=== PATIENT | male | born 1955 | race Caucasian/White ===

== ENCOUNTER 2018-05-07 10:00 | Inpatient (IN) | payer BC ==
[~2018-05-07] VITALS: Ht 175.3 cm; Wt 90.4 kg
[2018-05-07] MEDS ORDERED: CHOL100046 PO (10:58)
[2018-05-07] MEDS ORDERED: IBUP-1985 PO (10:58)
[2018-05-07] MEDS ORDERED: CALC1TAB PO (10:58)
[2018-05-07] MEDS ORDERED: DOCU-28 PO (10:58)
[2018-05-18 14:47] LABS: EOSINOPHILS # (AUTO) 0.1 X10'3 (0-0.9); EOSINOPHILS % (AUTO) 1.4 % (0-6); LYMPHOCYTES # (AUTO) 1.5 X10'3 (1.1-4.8); LYMPHOCYTES % (AUTO) 31.1 % (21-51); MEAN CORPUSCULAR HEMOGLOBIN 32.2 PG (27.0-31.0); MEAN CORPUSCULAR HGB CONC 33.5 g/dL (33.0-36.5); MEAN CORPUSCULAR VOLUME 96.2 FL (78-98); MEAN PLATELET VOLUME 7.7 FL (7.4-10.4); MONOCYTES # (AUTO) 0.5 X10'3 (0-0.9); NEUTROPHILS # (AUTO) 2.7 X10'3 (1.8-7.7); NEUTROPHILS % (AUTO) 55.5 % (42-75); PRE OP HEMATOCRIT 45.9 % (42.0-52.0); PRE OP HEMOGLOBIN 15.4 g/dL (14.0-17.9); PRE OP PLATELET COUNT 163 X10'3 (140-440); RED BLOOD COUNT 4.77 X10'6 (4.70-6.10); RED CELL DISTRIBUTION WIDTH 13.5 % (11.5-14.5)
[2018-05-18 14:59] LABS: CLARITY,URINE CLEAR (Clear); COLOR,URINE YELLOW (Yellow); GLUCOSE, URINE NEGATIVE (Neg); KETONES,URINE NEGATIVE (Neg); LEUKOCYTE ESTERASE ,URINE NEGATIVE (Neg); NITRITES, URINE NEGATIVE (Neg); OCCULT BLOOD,URINE NEGATIVE (Neg); PROTEIN,URINE NEGATIVE (Neg); UROBILINOGEN,URINE 0.2 E.U/dL (0.2-1.0)
[2018-05-18 15:00] LABS: ALBUMIN/GLOBULIN RATIO 1.1 (1.1-1.5); ALKALINE PHOSPHATASE 74 IU/L (46-116); BLOOD UREA NITROGEN 19 MG/DL (7-18); BUN/CREATININE RATIO 18.4 (5.4-32.0); CALCIUM 9.6 MG/DL (8.5-10.1); CHLORIDE 101 MMOL/L (99-107); CREATININE 1.03 MG/DL (0.60-1.10); PRE OP ALT 36 U/L (30-65); PRE OP ANION GAP 4 (8-16); PRE OP AST 19 U/L (10-37); PRE OP BILIRUB, TOTAL 0.7 MG/DL (0.0-1.0); PRE OP GLUCOSE 105 MG/DL (70-104); PRE OP SODIUM 138 MMOL/L (135-145); TOTAL CARBON DIOXIDE 32.7 MMOL/L (24-32); TOTAL PROTEIN 7.7 G/DL (6.4-8.2); eGFR 74 ML/MIN
[2018-05-18 15:01] LABS: UA COLLECTION TYPE CLN CATCH MIDSTREAM
[2018-05-26] MEDS ORDERED: FERR15DR PO (10:27)
[2018-05-27] VITALS (22 sets, daily range): BP systolic 107–157; BP diastolic 63–99
[2018-05-27] MEDS ORDERED: ringers solution, lacted 1,000 ML IV SCH ×2 (05:00→11:41)
[2018-05-27] MEDS ORDERED: oxyCODONE SR 10mg (sust. release) tab PO ONE (05:30)
[2018-05-27] MEDS ORDERED: acetaminophen 325mg tablet PO ONE (05:30)
[2018-05-27] MEDS ORDERED: famotidine 20mg tablet PO ONE (05:30)
[2018-05-27] MEDS ORDERED: tranexamic acid inj. 1,500 MG in normal saline 100ml IV soln 100 ML IV ONE (05:30)
[2018-05-27] MEDS ORDERED: cefazolin/dext.iso 2gm/100 ML IV ONE (05:30)
[2018-05-27] MEDS ORDERED: gabapentin 300mg capsule PO ONE (05:30)
[2018-05-27] MEDS ORDERED: celeCOXIB 100mg capsule PO ONE (06:00)
[2018-05-27] MEDS ORDERED: LIDOcaine 1% (10mg/ml) 2ml vial ONE (08:17)
[2018-05-27] MEDS ORDERED: bacitracin inj 150,000 UNIT in sodium chloride irrig. sol 3,000 ML IR ONE (09:00)
[2018-05-27] MEDS ORDERED: ROPIVAcaine 0.5% (5mg/ml) 30ml vial ONE ×2 (10:08→10:15)
[2018-05-27] MEDS ORDERED: tetracaine 1% (10mg/ml) pres. free inj. ONE (10:14)
[2018-05-27] MEDS ORDERED: MIDAZolam 1mg/ml 10ml vial ONE (10:23)
[2018-05-27] MEDS ORDERED: fentaNYL/PF 50MCG/1 ML 2ML syringe ONE (10:23)
[2018-05-27] MEDS ORDERED: proCHLORperazine 10 MG/2 ml inj IV PRN (11:45)
[2018-05-27] MEDS ORDERED: meperidine/PF 25mg/ml syringe IV PRN ×3 (11:45)
[2018-05-27] MEDS ORDERED: morphine 4 MG/ML inj SYRINge IV PRN ×2 (11:45)
[2018-05-27] MEDS ORDERED: ondansetron/PF 4mg/2ml inj IV PRN ×2 (11:45→13:15)
[2018-05-27] MEDS ORDERED: propofol inj 20 ML IV ONE ×2 (12:20)
[2018-05-27] MEDS ORDERED: ceFAZolin 1000mg inj ONE (12:20)
[2018-05-27] MEDS ORDERED: bisacodyl 10mg suppository rectal RC PRN (13:15)
[2018-05-27] MEDS ORDERED: HYDROmorphone 1 mg/ml syringe IV PRN (13:15)
[2018-05-27] MEDS ORDERED: oxyCODONE/APAP 10/325mg tablet PO PRN (13:15)
[2018-05-27] MEDS ORDERED: acetaminophen 325mg tablet PO PRN (13:15)
[2018-05-27] MEDS ORDERED: magnesium hydroxide 30ml (MOM) UD suspension PO PRN (13:15)
[2018-05-27] MEDS ORDERED: diphenhydrAMINE 25mg capsule PO PRN ×2 (13:15)
--- NOTE | 2018-05-27 13:24 | NUR ---
Received from OR via BED, accompanied by Anesthesiologist DR HERNANDEZ and report given by Anesthesiologist. PT AWAKE, DENIES PAIN, RIGHT KNEE W/DRSG, ICE PACK, WRAP, IMMOBILIZER. Addendum: 05/27/18 at 1355 by Renae Rodriguez RN Amended: Links added.
--- NOTE | 2018-05-27 15:02 | NUR ---
Received report from Renae BROWER in recovery. Pt's VS are stable, he has had ice chips and water, dermatome level T-11, EBL 300. Awaiting arrival to the floor.
--- NOTE | 2018-05-27 15:10 | NUR ---
Pt arrived on the floor. Tucked in, provided comfort measures. Pt A&O, no c/o discomfort at this time.
--- NOTE | 2018-05-27 15:14 | NUR ---
Report called to receiving nurse. Transferred via BED W/1 BAG PT Belongings, 1 BACK PACK, CELL PHONE, GLASSES SENT W/PT TO ROOM 4020A, RECEIVING RN AT BEDSIDE TO RECEIVE PT, BLL, SIDE RAILS UP X 2, CALL LIGHT GIVEN TO PT. Special Issues communicated to receiving nurse. YES. Addendum: 05/27/18 at 1534 by Renae Rodriguez RN Amended: Links added.
[2018-05-27] MEDS: potassium cl 20mEq in 1/2 NS 1,000 ML IV SCH ×2 (16:46→23:55)
[2018-05-27] MEDS: ceFAZolin 1GM/D5W- ADD-VANTAGE 50 ML IV SCH ×2 (16:56→23:55)
--- NOTE | 2018-05-27 18:27 | NUR ---
Problems reprioritized. Patient report given, questions answered & plan of care reviewed with Yoon BROWER.
--- NOTE | 2018-05-27 18:40 | NUR ---
Patient in room ORTHO 4020. I have received report from Flower BROWER and had the opportunity to ask questions and assume patient care.
[2018-05-27] MEDS: sennosides 8.6mg tablet PO SCH (20:04)
[2018-05-27] MEDS: ascorbic acid 500mg tablet PO SCH (20:04)
[2018-05-27] MEDS: gabapentin 300mg capsule PO SCH (20:04)
[2018-05-28 02:05] VITALS: BP 149/87
[2018-05-28] MEDS: potassium cl 20mEq in 1/2 NS 1,000 ML IV SCH ×3 (05:14→21:14)
[2018-05-28] MEDS: oxyCODONE/APAP 10/325mg tablet PO PRN ×3 (05:15→20:05)
[2018-05-28 06:00] VITALS: BP 157/90
--- NOTE | 2018-05-28 06:20 | NUR ---
I have received patient report from Yoon BROWER
--- NOTE | 2018-05-28 06:40 | NUR ---
Problems reprioritized. Patient report given, questions answered & plan of care reviewed with Manuela BROWER.
[2018-05-28 07:04] LABS: BASOPHILS % (AUTO) 0.2 % (0-1); EOSINOPHILS % (AUTO) 0.1 % (0-6); HEMOGLOBIN 14.3 g/dl (14.0-17.9); LYMPHOCYTES # (AUTO) 1.2 X10'3 (1.1-4.8); LYMPHOCYTES % (AUTO) 14.6 % (21-51); MEAN CORPUSCULAR HEMOGLOBIN 32.5 PG (27.0-31.0); MEAN CORPUSCULAR HGB CONC 33.2 g/dL (33.0-36.5); MEAN CORPUSCULAR VOLUME 97.9 FL (78-98); MEAN PLATELET VOLUME 8.1 FL (7.4-10.4); MONOCYTES # (AUTO) 0.8 X10'3 (0-0.9); MONOCYTES % (AUTO) 9.7 % (2-12); NEUTROPHILS # (AUTO) 6.1 X10'3 (1.8-7.7); NEUTROPHILS % (AUTO) 75.4 % (42-75); PLATELET COUNT 159 X10'3 (140-440); RED BLOOD COUNT 4.39 X10'6 (4.70-6.10); RED CELL DISTRIBUTION WIDTH 13.1 % (11.5-14.5)
[2018-05-28] MEDS: ascorbic acid 500mg tablet PO SCH ×2 (07:18→20:04)
[2018-05-28] MEDS: multivitamins, therapeutics tablet PO SCH (07:18)
[2018-05-28] MEDS: gabapentin 300mg capsule PO SCH ×3 (07:18→20:04)
[2018-05-28 07:19] LABS: INR 1.1 INR; PROTHROMBIN TIME 10.7 SECONDS (9.0-12.0)
[2018-05-28 07:33] LABS: ANION GAP 9 (8-16); CHLORIDE 104 MMOL/L (99-107); POTASSIUM 4.2 MMOL/L (3.5-5.1); SODIUM 141 MMOL/L (135-145); TOTAL CARBON DIOXIDE 27.8 MMOL/L (24-32)
[2018-05-28 10:00] VITALS: BP 142/84
[2018-05-28] MEDS ORDERED: warfarin 10mg tablet PO ONE (10:00)
[2018-05-28 14:00] VITALS: BP 122/74
--- NOTE | 2018-05-28 15:34 | NUR ---
Joint replacement consult: Pt seen by [facility] for written/verbal high protein ed. [facility] reviewed high protein needs for wound healing, immune strength, high protein foods, and protein supplementation options. [facility] contact information provided in case of further questions. Pt agrees to double proteins TIDWM; [facility] d/w dietary. Addendum: 05/28/18 at [address] Amended: Links added.
[2018-05-28 18:00] VITALS: BP 134/78
--- NOTE | 2018-05-28 18:19 | NUR ---
Patient in room ORTHO 4020. I have received report from Manuela BROWER and had the opportunity to ask questions and assume patient care.
--- NOTE | 2018-05-28 18:23 | NUR ---
I gave patient report to Yoon BROWER
[2018-05-28] MEDS: sennosides 8.6mg tablet PO SCH (20:04)
[2018-05-28] MEDS: celeCOXIB 100mg capsule PO SCH (20:04)
[2018-05-28 22:00] VITALS: BP 122/61
[2018-05-29] MEDS: oxyCODONE/APAP 10/325mg tablet PO PRN ×3 (00:24→09:25)
--- NOTE | 2018-05-29 05:18 | NUR ---
DC'D hemovac per order. 4x4 gauze applied under knee wrap.
[2018-05-29 06:00] VITALS: BP 125/85
--- NOTE | 2018-05-29 06:16 | NUR ---
Problems reprioritized. Patient report given, questions answered & plan of care reviewed with Manuela BROWER.
--- NOTE | 2018-05-29 06:27 | NUR ---
I received patient report from Yoon BROWER
[2018-05-29 06:32] LABS: BASOPHILS % (AUTO) 0.4 % (0-1); EOSINOPHILS % (AUTO) 0.6 % (0-6); HEMATOCRIT 34.9 % (42.0-52.0); LYMPHOCYTES # (AUTO) 2.1 X10'3 (1.1-4.8); LYMPHOCYTES % (AUTO) 32.1 % (21-51); MEAN CORPUSCULAR HEMOGLOBIN 33.1 PG (27.0-31.0); MEAN CORPUSCULAR HGB CONC 34.3 g/dL (33.0-36.5); MEAN CORPUSCULAR VOLUME 96.5 FL (78-98); MEAN PLATELET VOLUME 8.5 FL (7.4-10.4); MONOCYTES # (AUTO) 0.8 X10'3 (0-0.9); MONOCYTES % (AUTO) 12.5 % (2-12); NEUTROPHILS # (AUTO) 3.6 X10'3 (1.8-7.7); NEUTROPHILS % (AUTO) 54.4 % (42-75); PLATELET COUNT 130 X10'3 (140-440); RED BLOOD COUNT 3.62 X10'6 (4.70-6.10); RED CELL DISTRIBUTION WIDTH 13.2 % (11.5-14.5); WHITE BLOOD COUNT 6.6 X10'3 (4.5-11.0)
[2018-05-29 06:39] LABS: PROTHROMBIN TIME 10.9 SECONDS (9.0-12.0)
[2018-05-29] MEDS: celeCOXIB 100mg capsule PO SCH (07:54)
[2018-05-29] MEDS: multivitamins, therapeutics tablet PO SCH (07:54)
[2018-05-29] MEDS: ascorbic acid 500mg tablet PO SCH (07:54)
[2018-05-29] MEDS: gabapentin 300mg capsule PO SCH (07:54)
[2018-05-29] MEDS ORDERED: ASPI-1264 PO (09:05)
[2018-05-29] MEDS ORDERED: warfarin 3mg tablet PO ONE (10:00)
--- NOTE | 2018-05-29 10:00 | NUR ---
Patient discharged with . He was stable and appropriate. He had some drainage from Hemovac site, I gave him gauze and fresh knee wrap for home. 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
[2018-05-29] MEDS ORDERED: acetaminophen 325mg tablet PO PRN (13:15)
== END 2018-05-29 09:35 | disposition home or self-care (01) | DRG 470 ==
LOC: EDSTATUS 05-11 10:00 → PAS IN 05-27 07:49 → EDSTATUS 05-27 10:00 → ORTHO 4S 05-27 15:49
PROVIDERS: ADMIT Specialist; ATTEND Specialist
PROC: 0MNN0ZZ Release Right Knee Bursa and Ligament, Open Approach (ICD-10-PCS; 2018-05-27)
PROC: 3E0T3BZ Introduction of Anesthetic Agent into Peripheral Nerves and Plexi, Percutaneous Approach (ICD-10-PCS; 2018-05-27)
PROC: 0SRC0J9 Replacement of Right Knee Joint with Synthetic Substitute, Cemented, Open Approach (ICD-10-PCS; principal; 2018-05-27 10:21)
DX: M17.11 Unilateral primary osteoarthritis, right knee (principal); D62 Acute posthemorrhagic anemia; K58.9 Irritable bowel syndrome, unspecified; M21.161 Varus deformity, not elsewhere classified, right knee; Z72.89 Other problems related to lifestyle; Z79.899 Other long term (current) drug therapy; Z79.82 Long term (current) use of aspirin
CPT/HCPCS: 36415; 73560; 80051; 80053; 81003; 82948; 85025; 85610; 85730; 87070; 97110; 97116; 97161; 97530; A6449; A6455; A7000; C1713; C1758; C1776; G0378; J0690; J2250; J2704; J2795; J3010; J3490; J7030; J7120

== ENCOUNTER 2018-09-28 05:25 | Inpatient (IN) | payer BC ==
[2018-09-17 09:57] LABS: CLARITY,URINE CLEAR (Clear); COLOR,URINE STRAW (Yellow); GLUCOSE, URINE NEGATIVE (Neg); KETONES,URINE NEGATIVE (Neg); LEUKOCYTE ESTERASE ,URINE NEGATIVE (Neg); NITRITES, URINE NEGATIVE (Neg); OCCULT BLOOD,URINE NEGATIVE (Neg); PH,URINE 6.5 (4.8-8.0); PROTEIN,URINE NEGATIVE (Neg); UROBILINOGEN,URINE 0.2 E.U/dL (0.2-1.0)
[2018-09-17 10:01] LABS: UA COLLECTION TYPE CLN CATCH MIDSTREAM
[2018-09-17 10:08] LABS: EOSINOPHILS # (AUTO) 0.1 X10'3 (0-0.9); EOSINOPHILS % (AUTO) 3.1 % (0-6); LYMPHOCYTES # (AUTO) 1.7 X10'3 (1.1-4.8); LYMPHOCYTES % (AUTO) 37.2 % (21-51); MEAN CORPUSCULAR HEMOGLOBIN 31.7 PG (27.0-31.0); MEAN CORPUSCULAR HGB CONC 33.3 g/dL (33.0-36.5); MEAN CORPUSCULAR VOLUME 95.2 FL (78-98); MONOCYTES # (AUTO) 0.5 X10'3 (0-0.9); MONOCYTES % (AUTO) 11.9 % (2-12); NEUTROPHILS # (AUTO) 2.1 X10'3 (1.8-7.7); NEUTROPHILS % (AUTO) 46.8 % (42-75); PRE OP HEMATOCRIT 47.5 % (42.0-52.0); PRE OP HEMOGLOBIN 15.8 g/dL (14.0-17.9); PRE OP PLATELET COUNT 165 X10'3 (140-440); RED BLOOD COUNT 4.98 X10'6 (4.70-6.10); RED CELL DISTRIBUTION WIDTH 13.4 % (11.5-14.5)
[2018-09-17 10:14] LABS: ALBUMIN/GLOBULIN RATIO 1.1 (1.1-1.5); ALKALINE PHOSPHATASE 67 IU/L (46-116); BLOOD UREA NITROGEN 15 MG/DL (7-18); BUN/CREATININE RATIO 14.7 (5.4-32.0); CALCIUM 9.4 MG/DL (8.5-10.1); CHLORIDE 102 MMOL/L (99-107); CREATININE 1.02 MG/DL (0.60-1.10); PRE OP ALT 38 U/L (30-65); PRE OP ANION GAP 7 (8-16); PRE OP AST 13 U/L (10-37); PRE OP BILIRUB, TOTAL 0.6 MG/DL (0.0-1.0); PRE OP GLUCOSE 96 MG/DL (70-104); PRE OP POTASSIUM 4.6 MMOL/L (3.4-5.1); PRE OP SODIUM 139 MMOL/L (135-145); TOTAL CARBON DIOXIDE 30.2 MMOL/L (24-32); TOTAL PROTEIN 7.7 G/DL (6.4-8.2); eGFR 74 ML/MIN
[~2018-09-28] VITALS: Ht 177.8 cm; Wt 90.8 kg
[2018-09-28] VITALS (18 sets, daily range): BP systolic 94–140; BP diastolic 58–88
[~2018-09-28 05:25] MED LIST: CALC1TAB PO; CHOL100046 PO; FERR325T32 PO; IBUP-1985 PO; ringers solution, lacted 1,000 ML IV SCH
[2018-09-28] MEDS ORDERED: celeCOXIB 100mg capsule PO ONE (05:30)
[2018-09-28] MEDS ORDERED: cefazolin/dext.iso 2gm/100 ML IV ONE (05:30)
[2018-09-28] MEDS ORDERED: vancomycin inj 1,500 MG in normal saline 300ml IV soln IV ONE (05:30)
[2018-09-28] MEDS ORDERED: famotidine 20mg tablet PO ONE (05:30)
[2018-09-28] MEDS ORDERED: tranexamic acid inj. 1,500 MG in normal saline 100ml IV soln 100 ML IV ONE (05:30)
[2018-09-28] MEDS ORDERED: gabapentin 300mg capsule PO ONE (05:30)
[2018-09-28] MEDS ORDERED: oxyCODONE SR 10mg (sust. release) tab PO ONE (05:30)
[2018-09-28] MEDS ORDERED: acetaminophen 325mg tablet PO ONE (05:30)
[2018-09-28] MEDS ORDERED: LIDOcaine 1% (10mg/ml) 2ml vial ONE (05:44)
[2018-09-28] MEDS ORDERED: ROPIVAcaine 0.5% (5mg/ml) 30ml vial ONE ×2 (06:35→08:58)
[2018-09-28] MEDS ORDERED: MIDAZolam 5mg/5ml vial ONE (07:14)
[2018-09-28] MEDS ORDERED: fentaNYL/PF 50MCG/1 ML 2ML syringe ONE (07:14)
[2018-09-28] MEDS ORDERED: ringers solution, lacted 1,000 ML IV SCH (08:33)
[2018-09-28] MEDS ORDERED: ondansetron/PF 4mg/2ml inj IV PRN ×2 (08:35→10:00)
[2018-09-28] MEDS ORDERED: meperidine/PF 25mg/ml syringe IV PRN ×3 (08:35)
[2018-09-28] MEDS ORDERED: morphine 4 MG/ML inj SYRINge IV PRN ×2 (08:35)
[2018-09-28] MEDS ORDERED: proCHLORperazine 10 MG/2 ml inj IV PRN (08:35)
[2018-09-28] MEDS ORDERED: diphenhydrAMINE 50 mg/ml inj ONE (08:58)
[2018-09-28] MEDS ORDERED: ceFAZolin 1000mg inj ONE (08:58)
[2018-09-28] MEDS ORDERED: propofol inj 40 ML IV ONE (08:58)
[2018-09-28] MEDS ORDERED: LIDOcaine 1%/PF 5ML 10 MG/ML VIAL ONE (08:58)
[2018-09-28] MEDS ORDERED: bisacodyl 10mg suppository rectal RC PRN (10:00)
[2018-09-28] MEDS ORDERED: HYDROmorphone 1 mg/ml syringe IV PRN (10:00)
[2018-09-28] MEDS ORDERED: oxyCODONE/APAP 10/325mg tablet PO PRN (10:00)
[2018-09-28] MEDS ORDERED: acetaminophen 325mg tablet PO PRN (10:00)
[2018-09-28] MEDS ORDERED: magnesium hydroxide 30ml (MOM) UD suspension PO PRN (10:00)
[2018-09-28] MEDS ORDERED: diphenhydrAMINE 25mg capsule PO PRN ×2 (10:00)
--- NOTE | 2018-09-28 10:05 | NUR ---
Received from OR via , accompanied by Anesthesiologist DR BOLAÑOS and report given by Anesthesiolgist. AWAKE AND MARY PAIN. VITALS STABLE. DRESSING DI. IMMOBILIZER TO LLU. SENSATION TO THE FEET. MARTI WITH CLEAR URINE.
--- NOTE | 2018-09-28 11:05 | NUR ---
Report called to receiving nurse. Transferred via BED Belongings . Special Issues communicated to receiving nurse. AWAKE AND ORIENTED. VITALS STABLE. DRESSINGS DI. MARY PAIN. TO ORTHO RM 4022Y AT THIS TIME.
--- NOTE | 2018-09-28 11:10 | NUR ---
Received pt. from recovery room on bed to room 4024B. VSS. Pt. awake and alert. Requesting food. Pitcher of ice water provided. [place] and apple juice provided. Instructed regarding ankle pumps and I.S. use. Pt. denies pain. Has full ROM and can move all extremities. Left foot warm and pink. Pulses present. Call light in reach. Will continue to monitor pt.
--- NOTE | 2018-09-28 11:52 | NUR ---
Pt. lying supine with eyes closed. Respirations even and unlabored.
[2018-09-28] MEDS: potassium cl 20mEq in 1/2 NS 1,000 ML IV SCH ×2 (12:07→20:22)
[2018-09-28] MEDS: gabapentin 300mg capsule PO SCH ×2 (13:32→20:20)
[2018-09-28] MEDS: oxyCODONE/APAP 10/325mg tablet PO PRN ×2 (13:40→20:20)
[2018-09-28] MEDS: ceFAZolin 1GM/D5W- ADD-VANTAGE 50 ML IV SCH (16:01)
--- NOTE | 2018-09-28 18:30 | NUR ---
Patient in room ORTHO 4024. I have received report from INOCENTE EISENBERG and had the opportunity to ask questions and assume patient care.
[2018-09-28] MEDS ORDERED: vancomycin/NS 1 GM ADD-VANTAGE 250 ML IV SCH (20:00)
[2018-09-28] MEDS: sennosides 8.6mg tablet PO SCH (20:20)
[2018-09-28] MEDS: ascorbic acid 500mg tablet PO SCH (20:21)
[2018-09-29] MEDS: oxyCODONE/APAP 10/325mg tablet PO PRN ×5 (00:42→20:28)
[2018-09-29] MEDS: ceFAZolin 1GM/D5W- ADD-VANTAGE 50 ML IV SCH (00:42)
[2018-09-29 02:00] VITALS: BP 95/58
[2018-09-29] MEDS: potassium cl 20mEq in 1/2 NS 1,000 ML IV SCH ×3 (05:34→17:23)
--- NOTE | 2018-09-29 06:24 | NUR ---
Problems reprioritized. Patient report given, questions answered & plan of care reviewed with INOCENTE DE LA PAZ.
[2018-09-29 06:52] LABS: BASOPHILS % (AUTO) 0.8 % (0-1); EOSINOPHILS # (AUTO) 0.1 X10'3 (0-0.9); EOSINOPHILS % (AUTO) 2.5 % (0-6); HEMATOCRIT 39.6 % (42.0-52.0); HEMOGLOBIN 13.3 g/dl (14.0-17.9); LYMPHOCYTES # (AUTO) 1.8 X10'3 (1.1-4.8); LYMPHOCYTES % (AUTO) 30.1 % (21-51); MEAN CORPUSCULAR HEMOGLOBIN 32.1 PG (27.0-31.0); MEAN CORPUSCULAR HGB CONC 33.6 g/dL (33.0-36.5); MEAN CORPUSCULAR VOLUME 95.4 FL (78-98); MEAN PLATELET VOLUME 8.1 FL (7.4-10.4); MONOCYTES # (AUTO) 0.6 X10'3 (0-0.9); MONOCYTES % (AUTO) 10.6 % (2-12); NEUTROPHILS # (AUTO) 3.4 X10'3 (1.8-7.7); PLATELET COUNT 156 X10'3 (140-440); RED BLOOD COUNT 4.15 X10'6 (4.70-6.10); RED CELL DISTRIBUTION WIDTH 12.7 % (11.5-14.5)
[2018-09-29 06:57] LABS: ANION GAP 4 (8-16); CHLORIDE 104 MMOL/L (99-107); POTASSIUM 4.2 MMOL/L (3.5-5.1); SODIUM 139 MMOL/L (135-145); TOTAL CARBON DIOXIDE 30.9 MMOL/L (24-32)
[2018-09-29] MEDS: gabapentin 300mg capsule PO SCH ×3 (08:11→20:24)
[2018-09-29] MEDS: ascorbic acid 500mg tablet PO SCH ×2 (08:11→20:24)
[2018-09-29] MEDS: multivitamins, therapeutics tablet PO SCH (08:11)
[2018-09-29] MEDS ORDERED: warfarin 7.5mg tablet PO ONE (10:00)
[2018-09-29 14:00] VITALS: BP 128/69
--- NOTE | 2018-09-29 14:22 | NUR ---
Joint replacement consult: Pt seen by [facility] for written/verbal high protein ed. Pt declined written/verbal RD ed since here 4 months ago for other joint surgery and still has RD contact information and high protein handout from that admit. Declines additional proteins at this time. Addendum: 09/29/18 at [address] Amended: Links added.
[2018-09-29 18:00] VITALS: BP 107/77
--- NOTE | 2018-09-29 18:30 | NUR ---
Patient in room ORTHO 4024. I have received report from INOCENTE DE LA PAZ and had the opportunity to ask questions and assume patient care.
[2018-09-29] MEDS: celeCOXIB 100mg capsule PO SCH (20:21)
[2018-09-29] MEDS: sennosides 8.6mg tablet PO SCH (20:27)
[2018-09-29 22:00] VITALS: BP 119/76
[2018-09-30] MEDS: potassium cl 20mEq in 1/2 NS 1,000 ML IV SCH (01:58)
[2018-09-30] MEDS: oxyCODONE/APAP 10/325mg tablet PO PRN (05:41)
--- NOTE | 2018-09-30 06:16 | NUR ---
Problems reprioritized. Patient report given, questions answered & plan of care reviewed with INOCENTE ADAMS.
[2018-09-30 06:30] VITALS: BP 116/79
--- NOTE | 2018-09-30 06:30 | NUR ---
Patient in room ORTHO 4024. I have received report from Rayne BROWER and had the opportunity to ask questions and assume patient care.
[2018-09-30 06:35] LABS: BASOPHILS % (AUTO) 0.5 % (0-1); EOSINOPHILS # (AUTO) 0.2 X10'3 (0-0.9); EOSINOPHILS % (AUTO) 4.1 % (0-6); HEMATOCRIT 34.6 % (42.0-52.0); HEMOGLOBIN 11.9 g/dl (14.0-17.9); LYMPHOCYTES % (AUTO) 21.4 % (21-51); MEAN CORPUSCULAR HEMOGLOBIN 32.7 PG (27.0-31.0); MEAN CORPUSCULAR HGB CONC 34.3 g/dL (33.0-36.5); MEAN CORPUSCULAR VOLUME 95.1 FL (78-98); MEAN PLATELET VOLUME 8.4 FL (7.4-10.4); MONOCYTES # (AUTO) 0.6 X10'3 (0-0.9); MONOCYTES % (AUTO) 12.7 % (2-12); NEUTROPHILS # (AUTO) 2.9 X10'3 (1.8-7.7); NEUTROPHILS % (AUTO) 61.3 % (42-75); PLATELET COUNT 132 X10'3 (140-440); RED BLOOD COUNT 3.64 X10'6 (4.70-6.10); WHITE BLOOD COUNT 4.7 X10'3 (4.5-11.0)
[2018-09-30] MEDS: gabapentin 300mg capsule PO SCH (07:19)
[2018-09-30] MEDS: ascorbic acid 500mg tablet PO SCH (07:19)
[2018-09-30] MEDS: celeCOXIB 100mg capsule PO SCH (07:19)
[2018-09-30] MEDS: multivitamins, therapeutics tablet PO SCH (07:19)
[2018-09-30] MEDS ORDERED: ASPI-1 PO (07:34)
[2018-09-30] MEDS ORDERED: acetaminophen 325mg tablet PO PRN (10:00)
[2018-09-30] MEDS ORDERED: warfarin 10mg tablet PO ONE (10:00)
--- NOTE | 2018-09-30 10:30 | NUR ---
Patient discharged in wheelchair with his sister for a ride. Discharge instructions provided.
== END 2018-09-30 10:30 | disposition home or self-care (01) | DRG 470 ==
LOC: PAS IN 05:25 → EDSTATUS 07:30 → ORTHO 4S 11:15
PROVIDERS: ADMIT Specialist; ATTEND Specialist
PROC: 0MNP0ZZ Release Left Knee Bursa and Ligament, Open Approach (ICD-10-PCS; 2018-09-28)
PROC: 3E0T3BZ Introduction of Anesthetic Agent into Peripheral Nerves and Plexi, Percutaneous Approach (ICD-10-PCS; 2018-09-28)
PROC: 0SRD0J9 Replacement of Left Knee Joint with Synthetic Substitute, Cemented, Open Approach (ICD-10-PCS; principal; 2018-09-28 07:10)
DX: M17.12 Unilateral primary osteoarthritis, left knee (principal); D62 Acute posthemorrhagic anemia; K58.9 Irritable bowel syndrome, unspecified; M21.162 Varus deformity, not elsewhere classified, left knee; Z96.651 Presence of right artificial knee joint; Z79.899 Other long term (current) drug therapy
CPT/HCPCS: Z7506; Z7508; 36415; 73560; 80051; 80053; 81003; 82948; 85025; 85610; 85730; 87081; 97110; 97161; 97530; A4215; A6449; A6454; A7000; C1713; C1758; C1776; G0378; J0690; J1200; J2001; J2250; J2704; J2795; J3010; J3370; J3480; J7120